=== PATIENT | male | born 1965 | race Caucasian/White ===

== ENCOUNTER → 2018-04-04 | Outpatient (CLI) | payer BC ==
--- NOTE | 2018-04-04 16:21 | XR ---
EXAMINATION TYPE: XR chest 2V DATE OF EXAM: 04/04/2018 COMPARISON: NONE HISTORY: Preop back surgery, low back pain TECHNIQUE: Frontal and lateral views of the chest are obtained. FINDINGS: Lung volumes are low. There is no focal air space opacity, pleural effusion, or pneumothora x seen. The cardiac silhouette size is within normal limits. The osseous structures are intact. IMPRESSION: No acute cardiopulmonary process.
== END | disposition home or self-care (01) ==
LOC: RADXRYALE 13:28
PROVIDERS: ATTEND Family Medicine
DX: Z01.818 Encounter for other preprocedural examination (principal); M47.26 Other spondylosis with radiculopathy, lumbar region; Z18.10 Retained metal fragments, unspecified
CPT/HCPCS: 71046

== ENCOUNTER 2019-05-01 08:10 | Day surgery (SDC) | payer BC ==
[2019-04-25 11:33] VITALS: BMI 30.8
[~2019-05-01 08:10] MED LIST: LACTATED RINGERS 1,000 ML IV SCH; LIDOCAINE 1% 20 ML VIAL (10MG/ML) FOR IV START INTRADERMA PRN
[2019-05-01 08:44] VITALS: RESP 16; TEMP 97.4
[2019-05-01] MEDS ORDERED: PROPOFOL 10 MG/ML 20 ML VIAL IV ONE (08:57)
--- NOTE | 2019-05-01 09:26 | P.PCN ---
Date of Procedure: 05/01/19 Description of Procedure: BRIEF HISTORY: Patient is a 54-year-old pleasant male scheduled for an elective colonoscopy as a part of screening for malignant neoplasm of the colon. He denies any change of bowel habits, abdominal pain or blood per rectum. No prior history of colonoscopy. No family history of colon cancer. PROCEDURE PERFORMED: Colonoscopy with polypectomy. PREOPERATIVE DIAGNOSIS: Screening for malignant neoplasm colon, no prior colonoscopy. ESTIMATED BLOOD LOSS: Minimal. IV sedation per Anesthesia. PROCEDURE: After informed consent was obtained, the patient, was brought into the endoscopy unit. IV sedation was administered by Anesthesia under continuous monitoring. Digital rectal examination was normal. Initially the Olympus CF-190 flexible video colonoscope was then inserted in the rectum, gradually advanced into the cecum without any difficulty. Careful examination was performed as the scope was gradually being withdrawn. Ileocecal valve and the appendiceal orifice were visualized and appeared normal. Prep was excellent. Mucosa of the cecum, ascending colon, transverse colon, descending colon, sigmoid colon, and rectum appeared normal. A sessile 5 mm ascending colon polyp was removed with cold snare polypectomy and retrieved. A diminutive 2 mm sigmoid polyp was removed with cold forcep polypectomy. A few scattered diverticula were noted in the sigmoid colon. Retroflexion was performed in the rectum and no lesions were seen. The patient tolerated the procedure well. IMPRESSION: Diminutive sigmoid polyp removed with cold forceps. 5 mm ascending colon polyp removed with cold snare polypectomy. Mild sigmoid diverticulosis. RECOMMENDATIONS: Findings of this examination were discussed with the patient . Okay to resume diet and medications. Await pathology from polypectomies. Anticipate repeat colonoscopy in 5 years pending pathology from polypectomies.
[2019-05-01 09:43] VITALS: BP 137/93; PULSE 54
== END 2019-05-01 10:12 | disposition home or self-care (01) ==
LOC: ORWHC2ENDO 08:10
PROVIDERS: ATTEND Internal Medicine
DX: Z12.11 Encounter for screening for malignant neoplasm of colon (principal); D12.2 Benign neoplasm of ascending colon; D12.5 Benign neoplasm of sigmoid colon; K57.30 Diverticulosis of large intestine without perforation or abscess without bleeding; I10 Essential (primary) hypertension; G47.33 Obstructive sleep apnea (adult) (pediatric); Z87.891 Personal history of nicotine dependence; Z79.899 Other long term (current) drug therapy
CPT/HCPCS: 45380; 45385; J2704; 88305

== ENCOUNTER 2019-07-29 09:58 | Emergency (ER) | payer BC ==
[2019-07-29 10:04] VITALS: BP 145/87; PULSE 79; RESP 16; TEMP 98.7
--- NOTE | 2019-07-29 10:22 | ED ---
Extremity Problem HPI - General Source: patient Mode of arrival: ambulatory Limitations: no limitations <Alfonso Stringer - Last Filed: 07/29/19 10:57> <Mey Sewell - Last Filed: 07/30/19 23:43> - General Chief complaint: Extremity Problem,Nontraumatic Stated complaint: LT infection Time Seen by Provider: 07/29/19 10:05 - History of Present Illness Initial comments: Patient is 54-year-old male presenting to emergency Department with a chief complaint of swollen knee. States symptoms began 4 days ago gradual increase in severity. Reports the left knee is also warm compared to the right. Does report surrounding erythema. States there is pain walking and especially with knee flexion. He does report full range of motion of the knee. States the pain is alleviated at rest or extension. States he felt warm yesterday but denies any fevers. States the swelling and redness has decreased compared to last night. Denies any trauma to the region. Denies taking medications to alleviate the symptoms. Denies IV drug use. States he is in a monogamous relationship. No history of gout. (Alfonso Stringer) - Related Data Home Medications Medication Instructions Recorded Confirmed Lisinopril [Prinivil] 10 mg PO QAM 04/25/19 05/01/19 Vermillion-3 Fatty Acids/Fish Oil [Fish 1,400 mg PO DAILY 04/25/19 05/01/19 Oil 1,000 mg Softgel] Hydrochlorothiazide [Hydrodiuril] 25 mg PO DAILY 04/26/19 05/01/19 Previous Rx's Medication Instructions Recorded Cephalexin [Keflex] 500 mg PO TID #30 cap 07/29/19 Allergies Allergy/AdvReac Type Severity Reaction Status Date / Time No Known Allergies Allergy Verified 07/29/19 10:04 Review of Systems ROS Other: All systems not noted in ROS Statement are negative. <Alfonso Stringer - Last Filed: 07/29/19 10:57> ROS Other: All systems not noted in ROS Statement are negative. <Mey Sewell - Last Filed: 07/30/19 23:43> ROS Statement: Those systems with pertinent positive or pertinent negative responses have been documented in the HPI. Past Medical History Past Medical History: Hypertension, Sleep Apnea/CPAP/BIPAP Additional Past Medical History / Comment(s): no cpap History of Any Multi-Drug Resistant Organisms: None Reported Past Surgical History: Back Surgery, Orthopedic Surgery Additional Past Surgical History / Comment(s): Pin placed left hip Past Anesthesia/Blood Transfusion Reactions: Motion Sickness Past Psychological History: No Psychological Hx Reported Smoking Status: Former smoker Past Alcohol Use History: Occasional Past Drug Use History: None Reported - Past Family History Mother Family Medical History: No Reported History <Alfonso Stringer - Last Filed: 07/29/19 10:57> General Exam Limitations: no limitations General appearance: alert, in no apparent distress Head exam: Present: atraumatic, normocephalic, normal inspection Eye exam: Present: normal appearance Pupils: Present: normal accommodation ENT exam: Present: normal exam Neck exam: Present: normal inspection, full ROM Respiratory exam: Present: normal lung sounds bilaterally Cardiovascular Exam: Present: regular rate, normal rhythm, normal heart sounds Extremities exam: Present: full ROM, tenderness (Tenderness at the site of erythema.), normal capillary refill, other (+2 dorsalis pedis and posterior tibialis bilaterally.). Absent: normal inspection (Mild erythema on the anterior aspect the left knee. Overlying skin changes.), pedal edema, joint swelling (Knee effusion not evident), calf tenderness (Negative Homans sign.) Back exam: Present: normal inspection, full ROM Neurological exam: Present: alert, oriented X3 Psychiatric exam: Present: normal affect, normal mood Skin exam: Present: warm, dry, intact, normal color <Alfonso Stringer - Last Filed: 07/29/19 10:57> Course Vital Signs 07/29/19 10:02 Temperature 98.7 F Pulse Rate 79 Respiratory 16 Rate Blood Pressure 145/87 O2 Sat by Pulse 97 Oximetry Medical Decision Making <Alfonso Stringer - Last Filed: 07/29/19 10:57> <Mey Sewell - Last Filed: 07/30/19 23:43> - Medical Decision Making Patient is a 54-year-old male presenting to the emergency Department with a chief complaint of left knee pain. On exam patient does have overlying skin changes and mild erythema on the anterior aspect of the left knee. Patient has full range of motion with exacerbation of the pain on full flexion only. Mild pain when flexing or extending the knee. No effusion noted. X-rays unremarkable. I have low suspicion for septic joint. Vitals are stable. No fevers. I suspect the patient has cellulitis. The borders of the erythema were marked. Patient advised to return to emergency department if the erythema goes past the demarcated line, develops fever, increased pain with ambulation or decrease in range of motion. With the follow-up recommended. Patient di scharged with Keflex. Return parameters thoroughly discussed with patient was or standing and agreeable. Case discussed with physician. (Alfonso Stringer) I was available for consultation in the emergency department. The history and physical exam were done by the midlevel provider. I was consulted for this patients care. I reviewed the case with the midlevel provider and based on their presentation of the patient, I agree with the assessment, medical decision making and plan of care as documented. Chart was dictated using [employer] dictation software. Attempts were made to correct any dictation errors however some typographical errors may persist. (Mey Sewell) Disposition Is patient prescribed a controlled substance at d/c from ED?: No Time of Disposition: 11:04 <Alfonso Stringer - Last Filed: 07/29/19 10:57> <Mey Sewell - Last Filed: 07/30/19 23:43> Clinical Impression: Left knee pain, Cellulitis Disposition: HOME SELF-CARE Condition: Stable Instructions (If sedation given, give patient instructions): Cellulitis (DC) Additional Instructions: Take prescribed medication as directed. Follow-up with primary care. Return to emergency department if symptoms worsen. Prescriptions: Cephalexin [Keflex] 500 mg PO TID #30 cap Referrals: Abdelrahman Wright DO [Primary Care Provider] - 1-2 days Tara Quarles PAC [PHYSICIAN ELECTRICIAN RESEARCH] - 1-2 days
--- NOTE | 2019-07-29 10:34 | XR ---
EXAMINATION TYPE: XR knee complete LT , 3 VIEWS DATE OF EXAM ORDERED: 07/29/2019 HISTORY: swollen knee, no trauma. COMPARISON: None. FINDINGS: Joint spaces are well-maintained. No fracture, dislocation or joint effusion is seen. IMPRESSION: NO ACUTE OSSEOUS LESION.
== END 2019-07-29 11:20 | disposition home or self-care (01) ==
LOC: EC 09:58
DX: L03.116 Cellulitis of left lower limb (principal); I10 Essential (primary) hypertension; Z79.899 Other long term (current) drug therapy; Z98.890 Other specified postprocedural states; Z87.891 Personal history of nicotine dependence
CPT/HCPCS: 99283

== ENCOUNTER → 2023-12-17 | Outpatient (CLI) | payer BC ==
[2023-12-17 18:45] LABS: Alternaria alternata IgE <0.10 kU/L; Aspergillus fumagatus IgE <0.10 kU/L; Birch IgE <0.10 kU/L; Cat Epith & Dander IgE <0.10 kU/L; Cladosporian herbarum IgE <0.10 kU/L; Cockroach IgE 0.52 kU/L; Dog Dander IgE <0.10 kU/L; Elm IgE <0.10 kU/L; Maple (Box Elder) IgE 0.13 kU/L; Oak IgE 0.14 kU/L; Ragweed,Common IgE 0.15 kU/L
== END | disposition home or self-care (01) ==
LOC: LABWHC1 12:08
PROVIDERS: ATTEND Otolaryngology
DX: J30.89 Other allergic rhinitis (principal); L50.0 Allergic urticaria; B44.89 Other forms of aspergillosis
CPT/HCPCS: 36415; 82785; 86003

== ENCOUNTER → 2024-08-15 | Outpatient (CLI) | payer BC ==
--- NOTE | 2024-08-15 09:41 | MR ---
EXAMINATION TYPE: MR lumbar spine wo con DATE OF EXAM: 08/15/2024 8:58 AM COMPARISON: None. CLINICAL INDICATION: Male, 59 years old with history of M51.362 OTH INTVRT DISC DEGEN, LUM RGN W DISC OG BC, Loss of feeling in Left Leg x3 weeks IV Contrast: cc (None if empty) TECHNIQUE: Multiplanar, multisequence images of the lumbar spine were acquired without IV contrast. L1-L2: Normal disc appearance without desiccation. No herniation, protrusion or disc bulging. No ca nal stenosis is present. Foramina are patent bilaterally. L2-L3: Normal disc appearance without desiccation. No herniation, protrusion or disc bulging. No ca nal stenosis is present. Foramina are patent bilaterally. L3-L4: Mild disc desiccation with posterior disc bulge with effacement of ventral thecal sac and bila teral lateral recess stenosis. Foramina are patent bilaterally. L4-L5: Mild disc desiccation with left paracentral disc herniation. There appears to be extruded comp onent posterior to the superior endplate of L5 measuring 6.2 mm AP dimension. There is left lateral r ecess stenosis and left foraminal encroachment and mild central stenosis appreciated. Edema of the ex iting nerve root appreciated. L5-S1: Mild disc desiccation and annular tear. Small posterior central disc bulge with tiny protrusio n. No lateral recess stenosis and central stenosis. Foramina are patent. Lumbar segments are intact. No paraspinal masses are identified. Conus medullaris has a normal appe arance. IMPRESSION: 1. Degenerative disc disease as discussed. 2. Extruded disc herniation as noted at the L4-5 level with left lateral recess stenosis and associat ed mild central stenosis. [facility], , 08/15/2024 9:39 AM
== END | disposition home or self-care (01) ==
LOC: RADMRIMAIN 07:30
PROVIDERS: ATTEND Family Medicine
DX: M51.362 Other intervertebral disc degeneration, lumbar region with discogenic back pain and lower extremity pain (principal); M48.061 Spinal stenosis, lumbar region without neurogenic claudication
CPT/HCPCS: 72148